=== PATIENT | male | born 1990 | race African-American/Black ===

== ENCOUNTER 2018-01-06 14:04 | Observation (INO) | payer OTHER, SELFPAY ==
[2018-01-06 14:38] LABS: Hemoglobin 16.2 g/dL (14.0-18.0); Mean Corpuscular HGB CONC 32.6 g/dL (32.0-36.0); Mean Corpuscular Hemoglobin 32.2 pg (27.0-31.0); Platelet Count 210 thou/uL (130-400); RBC Distribution Width 11.8 % (11.5-14.5); Red Blood Cell (RBC) Count 5.03 mill/uL (4.70-6.10)
[2018-01-06 14:58] LABS: Eosinophils 1 % (0-10); Large Platelets SLIGHT; Lymphocytes 39 % (21-51); MDiff Complete? YES; Monocytes 3 % (0-10); Neutrophil 37 % (42-75); PLT Morphology Comment Appears Adequate; RBC Morphology Normal; Reactive Lymphocytes 19 % (0-10)
[2018-01-06 15:00] LABS: ALT (SGPT) 71 U/L (8-55); AST (SGOT) 22 U/L (5-34); Albumin 4.3 g/dL (3.5-5.0); Alkaline Phosphatase 64 U/L (40-150); Anion Gap 12 mmol/L (10-20); BUN (Urea Nitrogen) 11 mg/dL (8.9-20.6); Bilirubin, Total 0.3 mg/dL (0.2-1.2); CK (CPK) 251 U/L (30-200); Calc. Creatinine Clearance 0 mL/min (70-130); Calcium 9.9 mg/dL (7.8-10.44); Carbon Dioxide 24 mmol/L (22-29); Chloride 105 mmol/L (98-107); Estimated GFR-MDRD Greater than 90; Glucose 114 mg/dL (70-105); Potassium 4.2 mmol/L (3.5-5.1); Protein, Total 8.3 g/dL (6.0-8.3); Sodium 137 mmol/L (136-145)
[2018-01-06 15:04] LABS: CKMB 1.1 ng/mL (0-6.6); Troponin I Less than 0.010 ng/mL (< 0.028)
--- NOTE | 2018-01-06 15:08 | RAD ---
PORTABLE CHEST ONE VIEW: 01/06/2018 2:51 p.m. HISTORY: Seizure. Chest pain. COMPARISON: 09/10/2012 FINDINGS: The heart size is normal. No confluent areas of consolidation, pneumothorax, or pleural effusions ar e seen. IMPRESSION: No radiographic evidence of acute cardiopulmonary process. POS: OFF
[2018-01-06 16:22] LABS: Acetaminophen Less than 6.0 mcg/mL (10.0-30.0); Alcohol Less than 10 mg/dL (Less than 10); Salicylate Less than 8.0 mg/dL (15.0-30.0)
[2018-01-06 16:32] LABS: Amphetamine Not Detected (NotDetected); Barbiturates Screen Not Detected (NotDetected); Benzodiazepine Screen Not Detected (NotDetected); Cocaine Metabolite Screen Not Detected (NotDetected); Medtox Control Line Valid? VALID (VALID); Medtox Reader # READER 4; Methadone Not Detected (NotDetected); Methamphetamine Not Detected (NotDetected); Opiate Screen Not Detected (NotDetected); Oxycodone Screen Not Detected (NotDetected); Phencyclidine (PCP) Not Detected (NotDetected); THC/Cannabinoid Screen Not Detected (NotDetected); Tricyclic Screen Not Detected (NotDetected)
[2018-01-06] MEDS ORDERED: Ondansetron HCl/PF 4 MG/2 ML Vial IVP PRN ×2 (17:40→19:56)
[2018-01-06] MEDS ORDERED: Ondansetron ODT 4 MG TAB SL PRN (17:40)
[2018-01-06] MEDS ORDERED: Sodium Chloride 0.9% 1,000 ML IV SCH (17:40)
[2018-01-06 17:51] VITALS: BMI 32.6
[2018-01-06 18:54] LABS: Troponin I 0.015 ng/mL (< 0.028)
[2018-01-06] MEDS ORDERED: Acetaminophen 500 MG TAB PO PRN (19:56)
[2018-01-06] MEDS ORDERED: hydrALAZINE 20 MG/ML VIAL SLOW IVP PRN (19:56)
[2018-01-06] MEDS ORDERED: Ondansetron ODT 4 MG TAB PO PRN (19:56)
[2018-01-06] MEDS ORDERED: cloNIDine 0.1 MG TAB PO PRN (19:56)
[2018-01-06] MEDS ORDERED: Nitroglycerin 0.4 MG TAB (25 Tab Bottle) PO PRN (19:56)
[2018-01-06] MEDS: Carvedilol 3.125 MG TAB PO SCH (20:20)
[2018-01-06] MEDS: Famotidine 20 MG TAB PO SCH (20:20)
[2018-01-06 21:35] LABS: Troponin I 0.017 ng/mL (< 0.028)
--- NOTE | 2018-01-07 01:52 | HP ---
DATE OF ADMISSION: 01/06/2018 PRIMARY CARE PHYSICIAN: Roman jackson. CHIEF COMPLAINT: Chest pain and heartburn. HISTORY OF PRESENT ILLNESS: This is a 27-year-old -Y[place] male who presents to [facility] emergency department and transferred from [facility] after apparently e xperiencing an episode of heartburn and reflux symptoms with associated chest pain after eating his l unch. The patient states he had a hamburger for lunch and went to lay down in the halfway when he sudde nly experienced increased heartburn and reflux symptoms. The patient states he went to the restroom and had a loose bowel movement, but no emesis. The patient denied any fever, chills, aspiration coug h, congestion, or exposure history. The patient denies any known personal history of coronary artery disease or strong family history. The patient states he had been on a blood pressure medicine in e remote past, but no current treatment. The patient states he has intermittent reflux symptoms, but does not take any specific home remedies for the condition. The patient admits to history of seizur e disorder, previously treated with Dilantin, but states he is currently off the medication as he is not established with any primary care clinic. In the emergency room, the patient underwent general e valuation including chest imaging showing no acute infiltrates. EKG showed questionable T-wave inver sions in the inferolateral leads as well as voltage criteria consistent with left ventricular hypertr ophy. The patient received sublingual nitroglycerin and aspirin and was referred to the Hospitalist Service for evaluation. PAST MEDICAL HISTORY: 1. Seizure disorder, previously treated with Dilantin, none currently. 2. History of pancreatitis. 3. History of alcohol use. 4. Incarceration. PAST SURGICAL HISTORY: Reviewed and negative. CURRENT MEDICATIONS: None. ALLERGIES: PENICILLIN. FAMILY HISTORY: Mother with history of asthma and hypertension. SOCIAL HISTORY: Patient resides in [place], [place]. Currently, unemployed. Social alcohol use. No tobacco or illicit drug use. REVIEW OF SYSTEMS: The following complete review of systems was negative, unless otherwise mentioned in the HPI or below: Constitutional: Weight loss or gain, ability to conduct usual activities. Sk in: Rash, itching. Eyes: Double vision, pain. ENT/Mouth: Nose bleeding, neck stiffness, pain, te nderness. Cardiovascular: Palpitations, dyspnea on exertion, orthopnea. Respiratory: Shortness of breath, wheezing, cough, hemoptysis, fever or night sweats. Gastrointestinal: Poor appetite, abdom inal pain, heartburn, nausea, vomiting, constipation, or diarrhea. Genitourinary: Urgency, frequenc y, dysuria, nocturia. Musculoskeletal: Pain, swelling. Neurologic/Psychiatric: Anxiety, depressio n. Allergy/Immunologic: Skin rash, bleeding tendency. PHYSICAL EXAMINATION: VITAL SIGNS: On admission, blood pressure 154/86, pulse 64, respiratory rate 16, temperature 98.2 de grees Fahrenheit, O2 saturation 98% on room air. GENERAL APPEARANCE: This is a 27-year-old -Y[place]i male, alert and oriented x3, pleasant, co nversant, in no acute distress. HEENT: Pupils are equal, round, and reactive to light and accommodation. Extraocular muscles are in tact. No scleral icterus, no conjunctival injection. Nares patent. OP is clear. Teeth in fair rep air. NECK: Supple, no cervical adenopathy, no thyromegaly, no carotid bruits, no JVD appreciated. Cervic al spine with full active and passive range of motion. CHEST: Lungs are clear to auscultation bilaterally. CARDIOVASCULAR: S1, S2, without noted murmur. ABDOMEN: Flat, soft, nontender, nondistended. Bowel sounds are positive in all four quadrants. The re is no hepatosplenomegaly, no abdominal bruits, no rebound or guarding appreciated. EXTREMITIES: Warm and dry with fair turgor. No clubbing, cyanosis or asymmetric edema appreciated. Pulses palpable distally at the dorsalis pedis, posterior tibial, and popliteal arteries bilaterally . Capillary refill less than 2 seconds. NEUROLOGIC: Cranial nerves II-XII are grossly intact. No focal or lateralizing signs appreciated. PERTINENT LABORATORY AND X-RAY FINDINGS: Basic metabolic profile within normal limits. ALT 71. Tot al CK of 251. Troponin I negative x2. BNP 10.4, lipase 26. CBC showed an MCV of 99. Urine drug sc reen dated 01/06/2018 negative. Plasma alcohol level less than 10. Portable chest x-ray dated 01/06/2018 showed no acute cardiopulmonary process. EKG dated 01/06/2018 by my interpretation shows sinus mechanism with heart rates in the 80s. Attenuated R waves noted in the precordial leads. T-wave inversion in leads V4 through V6 and leads II and F. Normal axis. ASSESSMENT AND PLAN: 1. Chest pain. The patient will be placed in observation status on the telemetry unit. History is inconsistent with cardiac etiology chest pain. We will complete serial troponin I for third set. Ch maria victoria 2D transthoracic echocardiogram in the a.m. looking for wall motion abnormalities and valvular fu nction and ejection fraction. Check fasting lipid profile in the a.m. Suspect patient's presentatio n secondary to #2. 2. Gastroesophageal reflux. We will start Pepcid 20 mg p.o. b.i.d. 3. EKG changes with T-wave inversion inferolaterally. Suspect chronic condition. Check 2D transtho racic echocardiogram to correlate with wall motion abnormality. Suspect patient with untreated hyper tension. 4. Elevated blood pressure. We will initiate Coreg 3.125 mg p.o. b.i.d. Continue to titrate antihy pertensive regimen and monitor clinical response. 5. Seizure disorder. No current treatment with Dilantin. Likely, will likely need outpatient presc ription and establish a followup for consistent dosing and monitoring. 6. Prophylaxis. Sequential compression devices while in bed. Pepcid 20 mg p.o. b.i.d. 7. CODE STATUS is FULL. Surrogate medical decision maker is the patient's mother.
[2018-01-07 05:11] LABS: Anion Gap 11 mmol/L (10-20); BUN (Urea Nitrogen) 10 mg/dL (8.9-20.6); Calc. Creatinine Clearance 124 mL/min (70-130); Calcium 9.7 mg/dL (7.8-10.44); Carbon Dioxide 29 mmol/L (22-29); Chloride 103 mmol/L (98-107); Cholesterol 165 mg/dl (< 200 Desired); Estimated GFR-MDRD 86; Glucose 84 mg/dL (70-105); HDL Cholesterol 41 mg/dL (>60 Neg Risk); LDL Cholesterol, Calculated 105 mg/dL; Potassium 3.8 mmol/L (3.5-5.1); Sodium 139 mmol/L (136-145); Triglycerides 97 mg/dL (Less than 150)
[2018-01-07 05:25] LABS: Eosinophils 1 % (0-10); Lymphocytes 62 % (21-51); MDiff Complete? YES; Mean Corpuscular HGB CONC 32.2 g/dL (32.0-36.0); Mean Corpuscular Hemoglobin 32.1 pg (27.0-31.0); Mean Corpuscular Volume 99.7 fl (80.0-94.0); Mean Platelet Volume 8.8 fL (7.4-10.4); Monocytes 2 % (0-10); Neutrophil 35 % (42-75); PLT Morphology Comment Appears Adequate; Platelet Count 205 thou/uL (130-400); Red Blood Cell (RBC) Count 4.99 mill/uL (4.70-6.10); White Blood Cell (WBC) Count 8.2 thou/uL (4.8-10.8)
[2018-01-07 08:54] VITALS: BP 142/76; TEMP 97.7
[2018-01-07] MEDS: Famotidine 20 MG TAB PO SCH (09:50)
[2018-01-07] MEDS: Carvedilol 3.125 MG TAB PO SCH (09:50)
--- NOTE | 2018-01-07 14:55 | PDOC.PN ---
- Subjective Encounter Start Date: 01/07/18 Encounter Start Time: 09:10 -: old records requested/rev Pt seen and examined, chart reviewed in its entirety, this is my first visit with this patient No F/C, no N/V/D/C, no CP, no SOB 10 point ROS performed and neg for all systems except as per HPI - Objective Resuscitation Status: Resuscitation Status FULL:Full Resuscitation Vital Signs & Weight: Vital Signs (12 hours) Temp Pulse Resp BP Pulse Ox 01/07/18 08:26 97.7 F 56 L 16 142/76 H 99 01/07/18 07:50 97.7 F 56 L 16 01/07/18 04:23 97.6 F 50 L 16 143/85 H 99 Weight Weight 214 lb 14.4 oz I&O: 01/06/18 01/07/18 01/08/18 06:59 06:59 06:59 Intake Total 450 Balance 450 Result Diagrams: 01/07/18 04:24 01/07/18 04:24 Dx/Plan - Plan * .
--- NOTE | 2018-01-11 15:33 | EKG ---
Test Reason : CP Blood Pressure : / mmHG Vent. Rate : 080 BPM Atrial Rate : 080 BPM P-R Int : 166 ms QRS Dur : 078 ms QT Int : 328 ms P-R-T Axes : 025 017 252 degrees QTc Int : 378 ms Sinus rhythm with marked sinus arrhythmia Minimal voltage criteria for LVH, may be normal variant Abnormal ECG Confirmed by ARASH FONTAINE ([id number]), loan expeditor INDU VALERA ([id number]) on 01/11/2018 3:33:09 PM Referred By: GILMER Confirmed By:ARASH FONTAINE
== END 2018-01-07 12:26 | disposition home or self-care (01) ==
LOC: ERS 14:04 → 2SW 15:20
PROVIDERS: ADMIT Family Medicine; ATTEND Family Medicine
DX: R07.2 Precordial pain (principal); K21.9 Gastro-esophageal reflux disease without esophagitis; G40.909 Epilepsy, unspecified, not intractable, without status epilepticus; R12 Heartburn; R03.0 Elevated blood-pressure reading, without diagnosis of hypertension; Z88.0 Allergy status to penicillin; Z91.041 Radiographic dye allergy status
CPT/HCPCS: 36415; 71045; 80048; 80053; 80061; 80185; 80306; 80307; 82553; 83690; 83880; 84484; 85007; 85025; 85027; 93005; 93306; G0378

== ENCOUNTER 2018-02-20 20:42 | Emergency (ER) | payer OTHER, SELFPAY ==
[2018-02-20] MEDS ORDERED: Lorazepam 2 MG/ML VIAL ONE (21:03)
[2018-02-20 21:14] LABS: #Basophils 0.1 thou/uL (0.0-0.2); #Eosinphils 0.1 thou/uL (0.0-0.7); #Lymphocytes 3.9 thou/uL (1.20-3.40); #Monocytes 0.5 thou/uL (0.11-0.59); #Neutrophils 3.3 thou/uL (1.40-6.50); %Basophils 1.6 % (0.0-1.0); %Eosinophils 0.9 % (0.0-10.0); %Lymphocytes 49.9 % (21.0-51.0); %Monocytes 6.3 % (0.0-10.0); %Neutrophils 41.4 % (42.0-75.0); Hemoglobin 15.9 g/dL (14.0-18.0); Mean Corpuscular HGB CONC 34.6 g/dL (32.0-36.0); Mean Corpuscular Hemoglobin 33.4 pg (27.0-31.0); Mean Corpuscular Volume 96.7 fl (80.0-94.0); Mean Platelet Volume 8.1 fL (7.4-10.4); Platelet Count 218 thou/uL (130-400); RBC Distribution Width 12.1 % (11.5-14.5); Red Blood Cell (RBC) Count 4.77 mill/uL (4.70-6.10); White Blood Cell (WBC) Count 7.9 thou/uL (4.8-10.8)
--- NOTE | 2018-02-20 21:22 | CT ---
CT BRAIN NONCONTRAST: 02/20/18 HISTORY: 27-year-old male status post acute head trauma from fall due to seizure. FINDINGS: There is no midline shift or any other mass effect. There is no evidence of acute intracranial hemor rhage, large cortical infarct, obstructive hydrocephalus, or extraaxial fluid collection. The calvar ium is intact. IMPRESSION: No acute intracranial findings. jn [] POS: JIN
--- NOTE | 2018-02-20 21:30 | CT ---
CT CERVICAL SPINE NONCONTRAST: 02/20/18 HISTORY: 27-year-old male status post acute cervical trauma from fall. FINDINGS: There are no jumped or perched facets. There is no evidence of acute fracture. The vertebral body h eights are maintained. There is no prevertebral soft tissue swelling. IMPRESSION: No evidence of acute fracture or acute traumatic subluxation. jn [] POS: JIN
[2018-02-20 21:32] LABS: Anion Gap 12 mmol/L (10-20); BUN (Urea Nitrogen) 11 mg/dL (8.9-20.6); Calc. Creatinine Clearance 0 mL/min (70-130); Calcium 9.7 mg/dL (7.8-10.44); Carbon Dioxide 23 mmol/L (22-29); Chloride 105 mmol/L (98-107); Dilantin Less than 1.8 ug/mL (10.0-20.0); Estimated GFR-MDRD Greater than 90; Glucose 108 mg/dL (70-105); Potassium 3.8 mmol/L (3.5-5.1); Sodium 136 mmol/L (136-145)
--- NOTE | 2018-02-20 22:08 | CT ---
CT LUMBAR SPINE NONCONTRAST: 02/20/18 HISTORY: 27-year-old male status post acute lumbar trauma due to fall. FINDINGS: There are five lumbar type vertebrae. Minimal chronic anterior wedging of T12, L1, and L2. No acute c ompression fracture. No high grade disc space narrowing. Normal appendix. Multiple mildly enlarged me senteric lymph nodes. No hematoma identified in the perivertebral spaces. IMPRESSION: 1. No acute compression fracture of the lumbar spine. 2. Mesenteric lymphadenitis. POS: JIN
--- NOTE | 2018-02-20 22:09 | CT ---
THORACIC SPINE CT NONCONTRAST: 02/20/18 INDICATION: Injury, pain. Posttraumatic injury. FINDINGS: No compression fracture or subluxation of the thoracic spine. No retropulsion of bone into the verteb ral canal. No acute facet malalignment. IMPRESSION: No evidence of acute osseous abnormality of the thoracic spine. POS: AKASH
== END 2018-02-20 23:50 | disposition home or self-care (01) ==
LOC: ERS 20:42
DX: S39.012A Strain of muscle, fascia and tendon of lower back, initial encounter (principal); G40.909 Epilepsy, unspecified, not intractable, without status epilepticus; Z79.899 Other long term (current) drug therapy; W22.8XXA Striking against or struck by other objects, initial encounter
CPT/HCPCS: 36415; 70450; 72125; 72128; 72131; 80048; 80185; 85025; 96374; J2060

== ENCOUNTER 2018-04-08 05:40 | Emergency (ER) | payer SELFPAY | END 2018-04-08 07:23 | disposition home or self-care (01) | LOC: ERS 05:40 | DX: G40.909 Epilepsy, unspecified, not intractable, without status epilepticus (principal); Z76.0 Encounter for issue of repeat prescription; Z79.899 Other long term (current) drug therapy | CPT/HCPCS: 99283 ==

== ENCOUNTER 2018-09-11 00:39 | Emergency (ER) | payer SELFPAY ==
[2018-09-11 01:32] LABS: ALT (SGPT) 91 U/L (8-55); AST (SGOT) 42 U/L (5-34); Albumin 4.2 g/dL (3.5-5.0); Alkaline Phosphatase 69 U/L (40-150); Anion Gap 15 mmol/L (10-20); BUN (Urea Nitrogen) 11 mg/dL (8.9-20.6); Bilirubin, Total 0.6 mg/dL (0.2-1.2); Calc. Creatinine Clearance 0 mL/min (70-130); Calcium 9.2 mg/dL (7.8-10.44); Carbon Dioxide 21 mmol/L (22-29); Chloride 106 mmol/L (98-107); Estimated GFR-MDRD Greater than 90; Glucose 113 mg/dL (70-105); Lipase 206 U/L (8-78); Potassium 3.7 mmol/L (3.5-5.1); Protein, Total 8.2 g/dL (6.0-8.3); Sodium 138 mmol/L (136-145)
[2018-09-11 01:37] LABS: Eosinophils 1 % (0-10); Hemoglobin 15.5 g/dL (14.0-18.0); Lymphocytes 57 % (21-51); MDiff Complete? YES; Mean Corpuscular HGB CONC 32.8 g/dL (32.0-36.0); Mean Corpuscular Hemoglobin 31.9 pg (27.0-31.0); Mean Corpuscular Volume 97.1 fL (78.0-98.0); Mean Platelet Volume 8.9 fL (7.4-10.4); Monocytes 8 % (0-10); Neutrophil 34 % (42-75); PLT Morphology Comment Appears Adequate; Platelet Count 205 thou/uL (130-400); RBC Distribution Width 11.9 % (11.5-14.5); Red Blood Cell (RBC) Count 4.85 mill/uL (4.70-6.10); White Blood Cell (WBC) Count 6.9 thou/uL (4.8-10.8)
[2018-09-11 01:44] LABS: Bilirubin Negative (Negative); Blood, Urine Negative (Negative); Clarity CLEAR (Clear); Glucose, Urine (Dipstick) Negative (Negative); Leukocyte Negative (Negative); Nitrite Negative (Negative); Protein, Urine (Dipstick) Negative (Neg-Trace); Urobilinogen 0.2 mg/dL (0.2-1.0); pH, Urine 5.5 (5.0-9.0)
--- NOTE | 2018-09-11 08:20 | CT ---
PRELIMINARY REPORT/[facility]/EMERGENTY AFTER-HOURS PROCEDURE CT Abdomen and Pelvis Without Intravenous Contrast EXAM DATE/TIME: 09/11/2018 1:53 AM CLINICAL HISTORY: 28 years old, male; Pain; Abdominal pain; Flank; Right upper quadrant (ruq); Patient HX: M28 presents via ems with ruq abd pain onset today associated with nausea. PT reports similar episode about a yea r ago that PT states had something to do with his pancreas. Per ems PT is +etoh. TECHNIQUE: Axial computed tomography images of the abdomen and pelvis without intravenous contrast. Coronal reformatted images were created and reviewed. COMPARISON: No relevant prior studies available. FINDINGS: Lower thorax: The lung bases are clear. ABDOMEN: Liver: There is fatty infiltration of the liver. Gallbladder and bile ducts: No visible gallstones or other definite gallbladder abnormality by CT. Ul trasound could be more sensitive for detecting gallstones, if clinically needed. No biliary tree dila tion. Pancreas: Unremarkable. Spleen: Unremarkable. Adrenals: Unremarkable. Kidneys and ureters: Small left intrarenal calculus. No hydronephrosis of either kidney. No visible u reteral calculus. No perinephric fluid. Stomach and bowel: There are no CT findings to strongly suggest diverticulitis. Appendix: The appendix is visualized and appears normal. PELVIS: Bladder: Unremarkable as visualized. Reproductive: Unremarkable as visualized. ABDOMEN and PELVIS: Intraperitoneal space: No free air, ascites, or bowel distention. No abnormal mass or fluid collectio n in the pelvis. Bones/joints: No significant acute finding. Soft tissues: No significant acute finding. Vasculature: No evidence for abdominal aortic aneurysm. Lymph nodes: Several borderline to mildly prominent mesenteric lymph nodes, including in the right lo wer quadrant. This is a nonspecific appearance. Mesenteric adenitis might be considered, although the current appearance is relatively mild. Please correlate clinically. No significant retroperitoneal adenopathy. IMPRESSION: 1. Small left intrarenal calculus. 2. No hydronephrosis of either kidney. No visible ureteral calculus. 3. Unremarkable gallbladder by CT. 4. Normal appendix. 5. No free air or bowel distention. 6. Several borderline to mildly prominent mesenteric lymph nodes, see above. 7. Other findings discussed above. Thank you for allowing us to participate in the care of your patient. Dictated and Authenticated by: Jarad Anguiano MD 09/11/2018 2:41 AM Central Time ([place] & [place]) FINAL REPORT CT ABDOMEN AND PELVIS WITHOUT CONTRAST: Date: 09/11/18 FINDINGS/IMPRESSION: I agree with the preliminary report given by Keith. POS: BRIANDA
== END 2018-09-11 03:51 | disposition home or self-care (01) ==
LOC: ERS 00:39
DX: R10.11 Right upper quadrant pain (principal); Z79.899 Other long term (current) drug therapy
CPT/HCPCS: 36415; 74176; 80053; 81003; 82150; 83690; 85025; 96360

== ENCOUNTER 2019-04-02 20:21 | Emergency (ER) | payer SELFPAY ==
[2019-04-02] MEDS ORDERED: Acetaminophen 500 MG TAB ONE (21:01)
[2019-04-02 21:16] LABS: Bilirubin Negative (Negative); Blood, Urine Negative (Negative); Clarity CLOUDY (Clear); Glucose, Urine (Dipstick) Negative (Negative); Leukocyte Large (Negative); Nitrite Negative (Negative); Protein, Urine (Dipstick) Trace mg/dL (Neg-Trace); Specific Gravity, Urine 1.019 (1.002-1.036)
[2019-04-02 21:16] LABS: Hemoglobin 15.4 g/dL (14.0-18.0); Mean Corpuscular HGB CONC 32.8 g/dL (32.0-36.0); Mean Corpuscular Hemoglobin 32.2 pg (27.0-31.0); Platelet Count 208 thou/uL (130-400); RBC Distribution Width 11.7 % (11.5-14.5); White Blood Cell (WBC) Count 8.4 thou/uL (4.8-10.8)
[2019-04-02 21:27] LABS: Amphetamine Not Detected (NotDetected); Bacteria/HPF None Seen HPF (None Seen); Barbiturates Screen Not Detected (NotDetected); Benzodiazepine Screen Not Detected (NotDetected); Cocaine Metabolite Screen Not Detected (NotDetected); Hyaline Casts/LPF 0-3 HYALINE CAST LPF (0-3 Hyaline); Medtox Control Line Valid? VALID (VALID); Medtox Reader # READER 1; Methadone Not Detected (NotDetected); Methamphetamine Not Detected (NotDetected); Opiate Screen Not Detected (NotDetected); Oxycodone Screen Not Detected (NotDetected); Phencyclidine (PCP) Not Detected (NotDetected); Squamous Epithelial None Seen HPF (0-3); THC/Cannabinoid Screen Not Detected (NotDetected); Tricyclic Screen Not Detected (NotDetected)
[2019-04-02 21:28] LABS: Yeast-AUWi Flag 53.4 (0-25.0)
[2019-04-02 21:30] LABS: Lymphocytes 45 % (21-51); MDiff Complete? YES; Monocytes 6 % (0-10); Neutrophil 45 % (42-75); Reactive Lymphocytes 4 % (0-10)
[2019-04-02 21:33] LABS: ALT (SGPT) 49 U/L (8-55); AST (SGOT) 18 U/L (5-34); Albumin 4.1 g/dL (3.5-5.0); Alkaline Phosphatase 68 U/L (40-150); Anion Gap 13 mmol/L (10-20); BUN (Urea Nitrogen) 10 mg/dL (8.9-20.6); Bilirubin, Total 0.3 mg/dL (0.2-1.2); Calc. Creatinine Clearance 0 mL/min (70-130); Calcium 9.9 mg/dL (7.8-10.44); Carbon Dioxide 22 mmol/L (22-29); Chloride 107 mmol/L (98-107); Estimated GFR-MDRD Greater than 90; Glucose 121 mg/dL (70-105); Potassium 3.9 mmol/L (3.5-5.1); Protein, Total 8.1 g/dL (6.0-8.3); Sodium 138 mmol/L (136-145)
[2019-04-02 21:35] LABS: Yeast-All Forms None Seen HPF (None Seen)
--- NOTE | 2019-04-02 21:43 | CT ---
CT BRAIN NONCONTRAST: DATE: 04/02/2019 HISTORY: 28-year-old male with post ictal and posttraumatic headache after seizure and fall FINDINGS: There is no evidence of acute intra-axial or extra-axial hemorrhage. There is no midline shift or any other mass effect. There is no extra-axial fluid collection. The ventricles are normal in size and configuration. The tympanomastoid cavities, and the upper portions of the paranasal sinuses included in these images, are grossly clear. Calvarium is intact. IMPRESSION: Normal.
[2019-04-02] MEDS ORDERED: Lidocaine 1% (PF) 30 ML VIAL ONE (22:28)
[2019-04-02] MEDS ORDERED: cefTRIAXone\\ROCEPHIN 250 MG VIAL ONE (22:28)
[2019-04-02] MEDS ORDERED: Azithromycin 250 MG TAB ONE (22:31)
[2019-04-04 23:31] LABS: Chlam.trachomatis by PCR,Urine Not Detected (NotDetected)
== END 2019-04-02 23:05 ==
LOC: ERS 20:21
DX: R56.9 Unspecified convulsions (principal); R36.9 Urethral discharge, unspecified
CPT/HCPCS: 36415; 70450; 80053; 80306; 81003; 81015; 85025; 87491; 87591; 96372; J0696; J2001

== ENCOUNTER 2020-11-08 17:58 | Emergency (ER) | payer SELFPAY ==
[2020-11-08 18:57] LABS: Hemoglobin 15.8 g/dL (14.0-18.0); Mean Corpuscular HGB CONC 32.1 g/dL (32.0-36.0); Mean Corpuscular Hemoglobin 32.7 pg (27.0-31.0); Mean Platelet Volume 9.8 fL (7.4-10.4); Platelet Count 182 thou/uL (130-400); RBC Distribution Width 11.6 % (11.5-14.5); Red Blood Cell (RBC) Count 4.84 mill/uL (4.70-6.10); White Blood Cell (WBC) Count 6.8 thou/uL (4.8-10.8)
[2020-11-08 19:16] LABS: Eosinophils 3 % (0-10); Lymphocytes 60 % (21-51); MDiff Complete? YES; Monocytes 10 % (0-10); Neutrophil 20 % (42-75); Platelet Morphology Comment Appears Adequate; RBC Morphology Normal; Reactive Lymphocytes 6 % (0-10)
== END 2020-11-08 22:05 | disposition home or self-care (01) ==
LOC: ERS 17:58
DX: K29.70 Gastritis, unspecified, without bleeding (principal)
CPT/HCPCS: 36415; 85025; 99284

== ENCOUNTER 2021-01-10 14:39 | Observation (INO) | payer SELFPAY ==
[2021-01-10 16:01] LABS: Hemoglobin 16.6 g/dL (14.0-18.0); Mean Corpuscular HGB CONC 32.3 g/dL (32.0-36.0); Mean Corpuscular Hemoglobin 33.1 pg (27.0-31.0); Mean Platelet Volume 9.3 fL (7.4-10.4); Platelet Count 181 thou/uL (130-400); Red Blood Cell (RBC) Count 5.01 mill/uL (4.70-6.10); White Blood Cell (WBC) Count 7.1 thou/uL (4.8-10.8)
[2021-01-10] MEDS ORDERED: Lorazepam 2 MG/ML VIAL ONE ×2 (16:02→16:15)
[2021-01-10] MEDS ORDERED: diphenhydrAMINE 50 MG/ML VIAL ONE (16:17)
[2021-01-10] MEDS ORDERED: Haloperidol Lactate 5 MG/ML VIAL ONE (16:17)
[2021-01-10 16:20] LABS: ALT (SGPT) 136 U/L (8-55); AST (SGOT) 61 U/L (5-34); Acetaminophen Less than 6.0 mcg/mL (10.0-30.0); Albumin 4.4 g/dL (3.5-5.0); Alcohol Less than 10 mg/dL (Less than 10); Alkaline Phosphatase 61 U/L (40-110); Anion Gap 15 mmol/L (10-20); BUN (Urea Nitrogen) 12 mg/dL (8.9-20.6); Bilirubin, Total 0.8 mg/dL (0.2-1.2); CK (CPK) 1816 U/L (30-200); Calc. Creatinine Clearance 0 mL/min (70-130); Calcium 9.8 mg/dL (7.8-10.44); Carbon Dioxide 23 mmol/L (22-29); Chloride 104 mmol/L (98-107); Globulin 4.4 g/dL (2.4-3.5); Glucose 96 mg/dL (70-105); Potassium 4.1 mmol/L (3.5-5.1); Protein, Total 8.8 g/dL (6.0-8.3); Salicylate Less than 8.0 mg/dL (15.0-30.0); Sodium 138 mmol/L (136-145)
[2021-01-10 16:23] LABS: Band 3 % (5-11); Eosinophils 1 % (0-10); Lymphocytes 43 % (21-51); MDiff Complete? YES; Macrocytosis SLIGHT = 6-15 cells (100X) (0-5/hpf); Monocytes 7 % (0-10); Neutrophil 31 % (42-75); Platelet Morphology Comment Appears Adequate; Reactive Lymphocytes 15 % (0-10)
[2021-01-10 16:47] LABS: Bilirubin Negative (Negative); Blood, Urine Negative (Negative); Clarity Clear (Clear); Glucose, Urine (Dipstick) Normal (Negative); Ketone, Urine Negative (Negative); Leukocyte Negative Leu/uL (Negative); Nitrite Negative (Negative); Protein, Urine (Dipstick) 10 mg/dL (Neg-Trace); Specific Gravity, Urine 1.021 (1.002-1.036); Urobilinogen Normal mg/dL (Less than 2)
[2021-01-10 17:00] LABS: Amphetamine Detected (NotDetected); Barbiturates Screen Not Detected (NotDetected); Benzodiazepine Screen Not Detected (NotDetected); Cocaine Metabolite Screen Not Detected (NotDetected); Medtox Control Line Valid? VALID (VALID); Medtox Reader # READER 4; Methadone Not Detected (NotDetected); Methamphetamine Detected (NotDetected); Opiate Screen Not Detected (NotDetected); Oxycodone Screen Not Detected (NotDetected); Phencyclidine (PCP) Not Detected (NotDetected); THC/Cannabinoid Screen Detected (NotDetected); Tricyclic Screen Not Detected (NotDetected)
--- NOTE | 2021-01-10 18:16 | CT ---
CT BRAIN WITHOUT CONTRAST: HISTORY: Seizure COMPARISON: 04/02/2019 FINDINGS: No evidence of acute infarct, hemorrhage, midline shift or abnormal extra-axial fluid collections is seen. The ventricular size is appropriate and the basilar cisterns are patent. The bony calvarium is intact. The visualized paranasal sinuses and mastoid air cells are well aerated. IMPRESSION: No CT evidence of acute intracranial process.
[2021-01-10] MEDS ORDERED: Ondansetron ODT 4 MG TAB PO PRN (22:42)
[2021-01-10] MEDS ORDERED: Ondansetron PF 4 MG/2 ML Vial IVP PRN (22:42)
[2021-01-10] MEDS ORDERED: Acetaminophen 650 MG Suppository PR PRN (22:42)
[2021-01-10 23:37] VITALS: BMI 32.2
[2021-01-11] MEDS ORDERED: Acetaminophen/Codeine 30-300mg Tablet PO PRN (00:52)
[2021-01-11] MEDS ORDERED: Acetaminophen 325 MG TAB PO PRN (00:52)
[2021-01-11] MEDS: Sodium Chloride 0.9% 1,000 ML IV SCH ×2 (00:55→09:16)
[2021-01-11 03:10] LABS: SARS-CoV-2 PCR by NAA Not Detected (NotDetected)
--- NOTE | 2021-01-11 03:46 | PDOC.HHP ---
Hospitalist [facility] Altered mental state History of Present Illness: This is a 30-year-old male patient with a history of generalized seizures, hepatitis B infection and hypertension who presents with intentional unprescribed drug ingestion. Patient said he felt depressed after his niece had couple of days ago when he ended up taking some unknown pills. He notes that a friend gave him the pills which we about 4-5 and he was told he could help calm his anxiety. He however denies suicidal ideation. At presentation he denied any chest pain shortness of breath or nausea vomiting. Also denied abdominal pain. He denies any history of suicide attempt. At presentation his blood pressure was 169/103, pulse 79, temperature 98.2, respirate 17 and saturating 96 on room air. His labs CBC was essentially within normal limits chemistry showed increased ALT at 163 and AST of 61. Creatinine kinase was thousand 816. Troponin was 0.01. Urinalysis was unremarkable, toxicology showed negative salicylates and acetaminophen. However had amphetamines methamphetamines and cannabinoids present. Serology was negative for Covid. He received 2 L normal saline, 50 mg Benadryl and haloperidol 5 mg. Also received lorazepam 2 mg. A sitter was placed in his room Hospitalist team was consulted for admission Allergies/Adverse Reactions: Allergy/AdvReac Type Severity Reaction Status Date / Time iodine Allergy Mild Rash Verified 01/10/21 23:52 Penicillins Allergy Unknown Verified 01/10/21 23:52 Home Medications: Medication Instructions Recorded Confirmed Type No Known 01/11/21 01/11/21 History Past History: Past medical history: Generalized weakness Past surgical history: None Family history: None Social history: Denies alcohol, denies drug use, has no smoking history. Lives with his brother Hospitalist [facility] Constitutional: denies: fever, chills, sweats, weakness Respiratory: denies: cough, shortness of breath, hemoptysis, SOB with excertion Gastrointestinal: denies: nausea, vomiting, abdominal pain, diarrhea Musculoskeletal: denies: neck pain, shoulder pain, arm pain, back pain Neurological: denies: weakness, numbness, incoordination, change in speech All other systems reviewed; all pertinent +/- noted in HPI/Subj Hospitalist Exam Vitals: Vital Signs (12 hours) Temp Pulse Resp BP Pulse Ox 01/11/21 03:40 97.3 F L 70 20 136/67 95 03/03/21 00:00 98.3 F 77 20 164/85 H 100 01/10/21 21:23 98.3 F 77 20 164/85 H 100 Weight Weight 211 lb 12.8 oz General Appearance: awake alert General - other findings: In no acute distress Eye: PERRL, anicteric sclera ENT: normocephalic atraumatic Heart: RRR, no murmur, no gallops, normal peripheral pulses Respiratory: CTAB, no wheezes, no rales, no ronchi Gastrointestinal: soft, non-tender, non-distended, normal bowel sounds Extremities: no cyanosis, no clubbing, no edema Skin: normal turgor Neurological: cranial nerve grossly intact, no focal deficits, no new deficit Psychiatric: normal affect, normal behavior, A&O x 3 Hospitalist Results Result Diagrams: 01/11/21 04:02 01/11/21 04:02 Lab results: Laboratory Last Values WBC 7.1 thou/uL (4.8-10.8) 01/10/21 15:32 RBC 5.01 mill/uL (4.70-6.10) 01/10/21 15:32 Hgb 16.6 g/dL (14.0-18.0) 01/10/21 15:32 Hct 51.3 % (42.0-52.0) 01/10/21 15:32 MCV 102.0 fL (78.0-98.0) H 01/10/21 15:32 MCH 33.1 pg (27.0-31.0) H 01/10/21 15:32 MCHC 32.3 g/dL (32.0-36.0) 01/10/21 15:32 RDW 12.0 % (11.5-14.5) 01/10/21 15:32 Plt Count 181 thou/uL (130-400) 01/10/21 15:32 MPV 9.3 fL (7.4-10.4) 01/10/21 15:32 Neutrophils % (Manual) 31 % (42-75) L 01/10/21 15:32 Band Neuts % (Manual) 3 % (5-11) L 01/10/21 15:32 Lymphocytes % (Manual) 43 % (21-51) 01/10/21 15:32 Reactive Lymphs % 15 % (0-10) H 01/10/21 15:32 Monocytes % (Manual) 7 % (0-10) 01/10/21 15:32 Eosinophils % (Manual) 1 % (0-10) 01/10/21 15:32 Lymphocytes # Not Reportable 01/10/21 15:32 Plt Morphology Comment Appears Adequate 01/10/21 15:32 Macrocytosis SLIGHT = 6-15 cells (100X) (0-5/hpf) 01/10/21 15:32 Sodium 138 mmol/L (136-145) 01/10/21 15:32 Potassium 4.1 mmol/L (3.5-5.1) 01/10/21 15:32 Chloride 104 mmol/L (98-107) 01/10/21 15:32 Carbon Dioxide 23 mmol/L (22-29) 01/10/21 15:32 Anion Gap 15 mmol/L (10-20) 01/10/21 15:32 BUN 12 mg/dL (8.9-20.6) 01/10/21 15:32 Creatinine 1.17 mg/dL (0.7-1.3) 01/10/21 15:32 Estimated GFR (MDRD) 88 01/10/21 15:32 Glucose 96 mg/dL (70-105) 01/10/21 15:32 Calcium 9.8 mg/dL (7.8-10.44) 01/10/21 15:32 Total Bilirubin 0.8 mg/dL (0.2-1.2) 01/10/21 15:32 AST 61 U/L (5-34) H 01/10/21 15:32 ALT 136 U/L (8-55) H 01/10/21 15:32 Alkaline Phosphatase 61 U/L (40-110) 01/10/21 15:32 Creatine Kinase 1816 U/L (30-200) H 01/10/21 15:32 Troponin I 0.011 ng/mL (< 0.028) 01/10/21 15:32 Serum Total Protein 8.8 g/dL (6.0-8.3) H 01/10/21 15:32 Albumin 4.4 g/dL (3.5-5.0) 01/10/21 15:32 Globulin 4.4 g/dL (2.4-3.5) H 01/10/21 15:32 Albumin/Globulin Ratio 1.0 g/dL (1.2-2.2) L 01/10/21 15:32 TSH 3rd Generation 1.8830 uIU/mL (0.35-4.94) 01/10/21 15:32 Urine Color Light-Yellow (Yellow) 01/10/21 16:32 Urine Clarity Clear (Clear) 01/10/21 16:32 Urine pH 6.0 (5.0-9.0) 01/10/21 16:32 Ur Specific [place] 1.021 (1.002-1.036) 01/10/21 16:32 Urine Protein 10 mg/dL (Neg-Trace) 01/10/21 16:32 Urine Glucose (UA) Normal mg/dL (Negative) 01/10/21 16:32 Urine Ketones Negative mg/dL (Negative) 01/10/21 16:32 Urine Blood Negative (Negative) 01/10/21 16:32 Urine Nitrite Negative (Negative) 01/10/21 16:32 Urine Bilirubin Negative (Negative) 01/10/21 16:32 Urine Urobilinogen Normal mg/dL (Less than 2) 01/10/21 16:32 Ur Leukocyte Esterase Negative Sahil/uL (Negative) 01/10/21 16:32 Salicylates Less than 8.0 mg/dL (15.0-30.0) L 01/10/21 15:32 Urine Opiates Screen Not Detected (NotDetected) 01/10/21 16:32 Ur Oxycodone Screen Not Detected (NotDetected) 01/10/21 16:32 Urine Methadone Screen Not Detected (NotDetected) 01/10/21 16:32 Ur Propoxyphene Screen Not Detected (NotDetected) 01/10/21 16:32 Acetaminophen Less than 6.0 mcg/mL (10.0-30.0) L 01/10/21 15:32 Ur Barbiturates Screen Not Detected (NotDetected) 01/10/21 16:32 Ur Tricyclics Screen Not Detected (NotDetected) 01/10/21 16:32 Ur Phencyclidine Scrn Not Detected (NotDetected) 01/10/21 16:32 Ur Amphetamines Screen Detected (NotDetected) H 01/10/21 16:32 U Methamphetamines Scrn Detected (NotDetected) H 01/10/21 16:32 U Benzodiazepines Scrn Not Detected (NotDetected) 01/10/21 16:32 U Cocaine Metab Screen Not Detected (NotDetected) 01/10/21 16:32 U Cannabinoids Screen Detected (NotDetected) H 01/10/21 16:32 Drug Screen Comment () 01/10/21 16:32 Plasma Alcohol Less than 10 mg/dL (Less than 10) 01/10/21 15:32 SARS CoV-2 Rapid Source Nasopharyngeal Swab 01/10/21 17:54 SARS-CoV-2 RNA (TEMI) Not Detected (NotDetected) 01/10/21 17:54 Hospitalist H&P A/P Plan: This is a 30-year-old male patient with a history of hepatitis B, seizures and hypertension who presents to the ED after taking about 4 5 unknown pills. This he did upon feeling depressed after the of his niece. Suicide ideation Unclear which medications however patient is currently stable. Take about 4 to 5 pills. Salicylate and Tylenol levels within normal limits. He has slightly elevated transaminases however patient notes he has a history of hepatitis B which has been untreated. I also doubt at 45 pills of Tylenol will be of significant toxicity. Patient currently back to baseline We will monitor till a.m. Sitter in room [facility] consult in a.m. History of hypertension Blood pressure stable As needed blood pressure medications. Transaminitis Elevated liver enzymes Possibly due to hepatitis With a right upper quadrant with guarding/hepatitis panel -polysubstance abuse Amphethamine and canabis
[2021-01-11 04:45] LABS: ALT (SGPT) 112 U/L (8-55); AST (SGOT) 50 U/L (5-34); Acetaminophen Less than 6.0 mcg/mL (10.0-30.0); Albumin 3.6 g/dL (3.5-5.0); Alkaline Phosphatase 53 U/L (40-110); Anion Gap 14 mmol/L (10-20); BUN (Urea Nitrogen) 11 mg/dL (8.9-20.6); Bilirubin, Total 0.5 mg/dL (0.2-1.2); Calc. Creatinine Clearance 143 mL/min (70-130); Calcium 8.6 mg/dL (7.8-10.44); Carbon Dioxide 19 mmol/L (22-29); Chloride 107 mmol/L (98-107); Globulin 3.9 g/dL (2.4-3.5); Glucose 97 mg/dL (70-105); Potassium 3.8 mmol/L (3.5-5.1); Protein, Total 7.5 g/dL (6.0-8.3); Sodium 136 mmol/L (136-145)
[2021-01-11 04:54] LABS: Hemoglobin 15.1 g/dL (14.0-18.0); Mean Corpuscular HGB CONC 31.1 g/dL (32.0-36.0); Mean Corpuscular Hemoglobin 32.5 pg (27.0-31.0); Mean Platelet Volume 9.3 fL (7.4-10.4); Platelet Count 172 thou/uL (130-400); RBC Distribution Width 11.9 % (11.5-14.5); Red Blood Cell (RBC) Count 4.66 mill/uL (4.70-6.10); White Blood Cell (WBC) Count 7.8 thou/uL (4.8-10.8)
[2021-01-11 06:02] LABS: Band 5 % (5-11); Lymphocytes 63 % (21-51); MDiff Complete? YES; Monocytes 5 % (0-10); Neutrophil 27 % (42-75)
--- NOTE | 2021-01-11 08:36 | ULT ---
GALLBLADDER ULTRASOUND: HISTORY: Right upper quadrant pain. FINDINGS: Real-time imaging of the right upper quadrant shows a normal-appearing gallbladder. The common duct is 4 mm. The liver is of increased echogenicity. It measures 15.6 cm in length. The right kidney i s normal in size and not obstructed. Pancreas region is partially obscured. IMPRESSION: Diffuse fatty change of the liver. POS: DAVID
[2021-01-11] MEDS ORDERED: FLU VACC QS2020-21(6MOS UP)/PF 60 MCG/0.5 ML SYRINGE IM ONE (09:00)
[2021-01-11] MEDS ORDERED: Enoxaparin Sodium 40 MG/0.4 ML SYRINGE SC SCH (09:00)
--- NOTE | 2021-01-11 17:53 | PDOC.HOSPP ---
- Subjective Encounter Date: 01/11/21 Encounter Time: 17:52 Subjective: Mr. Waller was seen today in follow-up of intentional overdose. His affect is a bit flat. He denies any suicidal ideation to me. No new complaints. His girlfriend is at bedside. - Objective Vital Signs & Weight: Vital Signs (12 hours) Temp Pulse Resp BP Pulse Ox 01/11/21 15:40 97.7 F 64 16 138/83 98 01/11/21 11:20 98.4 F 72 14 138/76 97 01/11/21 08:00 98.5 F 69 16 153/71 H 97 Weight Weight 211 lb 12.8 oz Result Diagrams: 01/11/21 04:02 01/11/21 04:02 Hospitalist ROS - Medication Medications: Active Medications Generic Name Dose Route Start Last Admin Trade Name Freq PRN Reason Stop Dose Admin Enoxaparin Sodium 40 mg 01/11/21 09:00 01/11/21 08:46 Enoxaparin Sodium 40 Mg/0.4 Ml Syringe SC 40 mg 0900 JONEL Administration Sodium Chloride 1,000 mls @ 120 mls/hr 01/11/21 00:45 01/11/21 09:16 Normal Saline 0.9% IV 1,000 mls .[id number] JONEL Administration Polyethylene Glycol 17 gm 01/11/21 23:45 01/11/21 00:10 Polyethylene Glycol 3350 17 Gm Packet PO 01/12/21 01:00 17 gm NOW JONEL Administration Hospitalist Exam Vitals: Vital Signs (12 hours) Temp Pulse Resp BP Pulse Ox 01/11/21 15:40 97.7 F 64 16 138/83 98 01/11/21 11:20 98.4 F 72 14 138/76 97 01/11/21 08:00 98.5 F 69 16 153/71 H 97 Weight Weight 211 lb 12.8 oz General Appearance: NAD, awake alert Eye: PERRL, anicteric sclera Heart: RRR, no murmur, no gallops, no rubs, normal peripheral pulses Respiratory: CTAB, no wheezes, no rales, no ronchi, normal chest expansion, no tachypnea, normal percussion Gastrointestinal: soft, non-tender, non-distended, normal bowel sounds, no palpable masses, no hepatomegaly Extremities: no cyanosis, no edema Hosp A/P (1) Suicidal ideation Code(s): R45.851 - SUICIDAL IDEATIONS Status: Acute (2) Polysubstance abuse Code(s): F19.10 - OTHER PSYCHOACTIVE SUBSTANCE ABUSE, UNCOMPLICATED Status: Acute (3) Depression Code(s): F32.9 - MAJOR DEPRESSIVE DISORDER, SINGLE EPISODE, UNSPECIFIED Status: Acute (4) Rhabdomyolysis Code(s): M62.82 - RHABDOMYOLYSIS Status: Acute - Plan * Suicidal ideation- discussed with the patient- he denies any prior attempt. Will await [facility] evaluation * Rhabdomyolysis- continue IV fluids, and will repeat the CK result * Abdominal Ultrasound notedlysubstance abuse- will offer patient out patient resources
[2021-01-11 20:42] VITALS: BP 134/75; TEMP 98.3
[2021-01-11] MEDS ORDERED: Polyethylene Glycol 3350 17 GM Packet PO SCH (23:45)
--- NOTE | 2021-01-12 18:54 | PDOC.DS.DS ---
Provider Date of Admission: 01/10/21 18:39 Date of Discharge: 01/12/21 Admitting Provider: Jagdish Shipman MD Primary Care Physician: NO PCP PROVIDER Course Hospital Course: Sridhar is a 30 year old gentleman with no significant past medical history who was brought o the hospital by family due o concerns for medication overdose. He was feeling sad about the of his young niece, and admits to taking a hand full of pills to " chill out". He says that he never got drowsy or loss consciousness, but his friends were concerned and brought him to the hospital. He had slightly elevated liver function tests, as well as a CK level, and for this reason he was monitored in the hospital overnight. He was placed on IV fluids, and his CK level began to improve. He maintained normal renal function through out. He denied suicidal ideation, and denied any plan to try to harm himself. He denied homicidal ideation as well. Prior to his discharge he was evaluated by [facility] and it was felt that he was safe to go home in the care of his family, and girl friend. Resources were given for follow-up and crisis intervention. Lab Results: 01/11/21 04:02 01/11/21 04:02 Abnormal Lab Results - Last 48 hrs 01/11/21 04:02: Carbon Dioxide 19 L, AST 50 H, ALT 112 H, Globulin 3.9 H, Albumin/Globulin Ratio 0.9 L, Acetaminophen Less than 6.0 L 01/11/21 04:02: RBC 4.66 L, MCV 104.0 H, MCH 32.5 H, MCHC 31.1 L, Neutrophils % (Manual) 27 L, Lymphocytes % (Manual) 63 H 01/11/21 16:17: Creatine Kinase 926 H Vitals: Weight Weight 211 lb 12.8 oz Physical Exam: The patient was seen and examined on the day of discharge. Problem (1) Suicidal ideation Code(s): R45.851 - SUICIDAL IDEATIONS Status: Acute (2) Polysubstance abuse Code(s): F19.10 - OTHER PSYCHOACTIVE SUBSTANCE ABUSE, UNCOMPLICATED Status: Acute (3) Depression Code(s): F32.9 - MAJOR DEPRESSIVE DISORDER, SINGLE EPISODE, UNSPECIFIED Status: Acute (4) Rhabdomyolysis Code(s): M62.82 - RHABDOMYOLYSIS Status: Acute Plan Home Medications: Medication Instructions Recorded Confirmed Type No Known 01/11/21 01/11/21 History Allergies: iodine Allergy (Mild, Verified 01/10/21 23:52) Rash per pt Penicillins Allergy (Unknown, Verified 01/10/21 23:52) pt doesn't know reaction but stated allergic Referrals: [facility] [Outside] (Please call the clinic if your symptoms get worse or you need help.) PROVIDER,NO PCP [Primary Care Provider] - 7 Days (Please choose a primary care p hysician and schedule a follow up appointment) Disposition: HOME Quality CORE MEASURES:: N/A
--- NOTE | 2021-01-14 16:32 | EKG ---
Test Reason : Blood Pressure : / mmHG Vent. Rate : 077 BPM Atrial Rate : 077 BPM P-R Int : 160 ms QRS Dur : 080 ms QT Int : 352 ms P-R-T Axes : 035 013 246 degrees QTc Int : 398 ms Normal sinus rhythm with sinus arrhythmia Minimal voltage criteria for LVH, may be normal variant T wave abnormality, consider inferolateral ischemia Abnormal ECG Confirmed by YESSENIA DIA M.D. ([id number]), editor [place] ([id number]) on 01/14/2021 4:32:27 PM Referred By: Confirmed By:YESSENIA DIA M.D.
== END 2021-01-11 21:05 | disposition home or self-care (01) ==
LOC: ERS 14:39 → ERHOLD 18:39 → 2NO 23:13
PROVIDERS: ADMIT Student in an Organized Health Care Education/Training Program; ATTEND Internal Medicine
DX: T65.92XA Toxic effect of unspecified substance, intentional self-harm, initial encounter (principal); R41.82 Altered mental status, unspecified; I10 Essential (primary) hypertension; B19.10 Unspecified viral hepatitis B without hepatic coma; F15.10 Other stimulant abuse, uncomplicated; F12.10 Cannabis abuse, uncomplicated; R45.851 Suicidal ideations; F32.9 Major depressive disorder, single episode, unspecified; M62.82 Rhabdomyolysis; Z88.0 Allergy status to penicillin; Z91.041 Radiographic dye allergy status; Z20.822 Contact with and (suspected) exposure to COVID-19
CPT/HCPCS: 36415; 36416; 70450; 76705; 80053; 80143; 80306; 80307; 81003; 82550; 84443; 84484; 85025; 87635; 90471; 90662; 93005; 94760; 96372; 96374; 96375; G0008; G0378; J1200; J1630; J1650; J2060; U0003; U0005

== ENCOUNTER 2021-02-02 13:26 | Emergency (ER) | payer SELFPAY ==
[2021-02-02 14:04] LABS: Hemoglobin 16.2 g/dL (14.0-18.0); Mean Corpuscular HGB CONC 32.4 g/dL (32.0-36.0); Mean Corpuscular Hemoglobin 32.9 pg (27.0-31.0); Mean Platelet Volume 9.1 fL (7.4-10.4); Platelet Count 159 thou/uL (130-400); Red Blood Cell (RBC) Count 4.92 mill/uL (4.70-6.10); White Blood Cell (WBC) Count 5.2 thou/uL (4.8-10.8)
[2021-02-02 14:24] LABS: Acetaminophen Less than 6.0 mcg/mL (10.0-30.0); Alcohol 14 mg/dL (Less than 10); CK (CPK) 557 U/L (30-200); Salicylate Less than 8.0 mg/dL (15.0-30.0)
[2021-02-02 14:26] LABS: Amphetamine Not Detected (NotDetected); Barbiturates Screen Not Detected (NotDetected); Benzodiazepine Screen Not Detected (NotDetected); Cocaine Metabolite Screen Not Detected (NotDetected); Medtox Control Line Valid? VALID (VALID); Medtox Reader # READER 1; Methadone Not Detected (NotDetected); Methamphetamine Not Detected (NotDetected); Opiate Screen Not Detected (NotDetected); Oxycodone Screen Not Detected (NotDetected); Phencyclidine (PCP) Not Detected (NotDetected); THC/Cannabinoid Screen Not Detected (NotDetected); Tricyclic Screen Not Detected (NotDetected)
[2021-02-02 14:26] LABS: ALT (SGPT) 149 U/L (8-55); AST (SGOT) 74 U/L (5-34); Albumin 4.1 g/dL (3.5-5.0); Alcohol 10 mg/dL (Less than 10); Alkaline Phosphatase 66 U/L (40-110); Anion Gap 14 mmol/L (10-20); BUN (Urea Nitrogen) 11 mg/dL (8.9-20.6); Bilirubin, Total 0.5 mg/dL (0.2-1.2); Calc. Creatinine Clearance 0 mL/min (70-130); Calcium 8.9 mg/dL (7.8-10.44); Carbon Dioxide 21 mmol/L (22-29); Chloride 104 mmol/L (98-107); Globulin 4.4 g/dL (2.4-3.5); Glucose 86 mg/dL (70-105); Potassium 3.8 mmol/L (3.5-5.1); Protein, Total 8.5 g/dL (6.0-8.3); Sodium 135 mmol/L (136-145)
[2021-02-02 14:36] LABS: Band 1 % (5-11); Eosinophils 1 % (0-10); Lymphocytes 32 % (21-51); MDiff Complete? YES; Macrocytosis SLIGHT = 6-15 cells (100X) (0-5/hpf); Monocytes 13 % (0-10); Neutrophil 27 % (42-75); Platelet Morphology Comment Appears Adequate; Polychromasia SLIGHT = 2-3 cells (100X) (0-2/hpf); Reactive Lymphocytes 26 % (0-10); Target Cells SLIGHT = 2-5 cells (100X) (0-1/hpf)
[2021-02-02 15:55] LABS: Bilirubin Negative (Negative); Blood, Urine 2+ (Negative); Clarity Clear (Clear); Glucose, Urine (Dipstick) Normal (Negative); Ketone, Urine Negative (Negative); Leukocyte Negative Leu/uL (Negative); Nitrite Negative (Negative); Protein, Urine (Dipstick) Negative (Neg-Trace); RBC/HPF Greater than 50 HPF (0-3); Specific Gravity, Urine 1.017 (1.002-1.036); Squamous Epithelial 0-3 HPF (0-3); Urobilinogen Normal mg/dL (Less than 2); WBC/HPF 0-3 HPF (0-3); pH, Urine 5.5 (5.0-9.0)
[2021-02-02 15:56] LABS: Bacteria/HPF 1+ HPF (None Seen)
[2021-02-02] MEDS ORDERED: levETIRAcetam 500 MG/100 ML PREMIX BAG ONE (16:19)
[2021-02-02] MEDS ORDERED: Ondansetron ODT 4 MG TAB ONE (18:04)
== END 2021-02-02 18:46 | disposition home or self-care (01) ==
LOC: ERS 13:26
DX: R45.1 Restlessness and agitation (principal); R56.9 Unspecified convulsions
CPT/HCPCS: 36415; 51701; 70450; 80053; 80306; 80307; 81003; 81015; 82550; 84146; 84484; 85025; 93005; 94760; 96365; J1953; Q0162

== ENCOUNTER 2021-12-20 20:04 | Emergency (ER) | payer SELFPAY ==
[2021-12-20] MEDS ORDERED: levETIRAcetam in NS 100 ML ONE (20:52)
[2021-12-20] MEDS ORDERED: Lorazepam 2 MG/ML VIAL ONE (20:52)
[2021-12-20 21:17] LABS: Hemoglobin 15.9 g/dL (14.0-18.0); Mean Corpuscular HGB CONC 32.7 g/dL (32.0-36.0); Mean Corpuscular Hemoglobin 33.4 pg (27.0-31.0); Mean Platelet Volume 9.2 fL (7.4-10.4); Platelet Count 156 thou/uL (130-400); Red Blood Cell (RBC) Count 4.77 mill/uL (4.70-6.10)
[2021-12-20 21:24] LABS: Band 1 % (5-11); Eosinophils 1 % (0-10); Lymphocytes 67 % (21-51); MDiff Complete? YES; Monocytes 6 % (0-10); Neutrophil 22 % (42-75); Platelet Morphology Comment Appears Adequate; Reactive Lymphocytes 3 % (0-10)
[2021-12-20 22:16] LABS: Albumin 4.1 g/dL (3.5-5.0)
[2021-12-20 22:17] LABS: Chloride 104 mmol/L (98-107); Potassium 3.5 mmol/L (3.5-5.1); Sodium 136 mmol/L (136-145)
[2021-12-20 22:18] LABS: Calcium 9.4 mg/dL (7.8-10.44)
[2021-12-20 22:19] LABS: Globulin 4.4 g/dL (2.4-3.5); Glucose 102 mg/dL (70-105); Protein, Total 8.5 g/dL (6.0-8.3)
[2021-12-20 22:20] LABS: Anion Gap 12 mmol/L (10-20); Carbon Dioxide 24 mmol/L (22-29)
[2021-12-20 22:21] LABS: Bilirubin, Total 0.5 mg/dL (0.2-1.2)
[2021-12-20 22:22] LABS: Alkaline Phosphatase 61 U/L (40-110); Calc. Creatinine Clearance 0 mL/min (70-130)
[2021-12-20 22:23] LABS: BUN (Urea Nitrogen) 9 mg/dL (8.9-20.6)
[2021-12-20 22:24] LABS: AST (SGOT) 49 U/L (5-34)
[2021-12-20 22:25] LABS: ALT (SGPT) 96 U/L (8-55); Lipase 24 U/L (8-78)
== END 2021-12-20 23:15 | disposition home or self-care (01) ==
LOC: ERS 20:04
DX: R56.9 Unspecified convulsions (principal); R10.11 Right upper quadrant pain
CPT/HCPCS: 36415; 70450; 71045; 80053; 83690; 84484; 85025; 93005; 96365; 96375; J1953; J2060

== ENCOUNTER 2022-06-26 03:12 | Emergency (ER) | payer SELFPAY ==
[2022-06-26 04:22] LABS: Amphetamine Not Detected (NotDetected); Barbiturates Screen Not Detected (NotDetected); Benzodiazepine Screen Not Detected (NotDetected); Cocaine Metabolite Screen Not Detected (NotDetected); Methadone Not Detected (NotDetected); Methamphetamine Not Detected (NotDetected); Opiate Screen Not Detected (NotDetected); Oxycodone Screen Not Detected (NotDetected); Phencyclidine (PCP) Not Detected (NotDetected); THC/Cannabinoid Screen Not Detected (NotDetected); Tricyclic Screen Not Detected (NotDetected)
[2022-06-26 04:25] LABS: #Basophils 0.1 thou/uL (0.0-0.2); #Lymphocytes 5.3 thou/uL (1.20-3.40); #Monocytes 0.8 thou/uL (0.11-0.59); #Neutrophils 5.4 thou/uL (1.40-6.50); %Basophils 0.6 % (0.0-1.0); %Eosinophils 0.2 % (0.0-10.0); %Monocytes 6.6 % (0.0-10.0); %Neutrophils 46.6 % (42.0-75.0); Hemoglobin 14.9 g/dL (14.0-18.0); Mean Corpuscular HGB CONC 33.1 g/dL (32.0-36.0); Mean Corpuscular Hemoglobin 33.3 pg (27.0-31.0); Mean Platelet Volume 9.4 fL (7.4-10.4); Platelet Count 188 thou/uL (130-400); RBC Distribution Width 12.2 % (11.5-14.5); Red Blood Cell (RBC) Count 4.47 mill/uL (4.70-6.10); White Blood Cell (WBC) Count 11.5 thou/uL (4.8-10.8)
[2022-06-26 04:42] LABS: ALT (SGPT) 76 U/L (8-55); AST (SGOT) 36 U/L (5-34); Acetaminophen Less than 10.0 mcg/mL (10.0-30.0); Albumin 4.4 g/dL (3.5-5.0); Alcohol Less than 10 mg/dL (Less than 10); Alkaline Phosphatase 73 U/L (40-110); Anion Gap 17 mmol/L (10-20); BUN (Urea Nitrogen) 14 mg/dL (8.9-20.6); Bilirubin, Total 0.6 mg/dL (0.2-1.2); Calc. Creatinine Clearance 0 mL/min (70-130); Calcium 9.6 mg/dL (7.8-10.44); Carbon Dioxide 23 mmol/L (22-29); Chloride 105 mmol/L (98-107); Estimated GFR 84; Globulin 4.1 g/dL (2.4-3.5); Glucose 102 mg/dL (70-105); Potassium 3.6 mmol/L (3.5-5.1); Protein, Total 8.5 g/dL (6.0-8.3); Salicylate Less than 8.0 mg/dL (15.0-30.0); Sodium 141 mmol/L (136-145)
[2022-06-26] MEDS ORDERED: levETIRAcetam 500 MG TAB PO SCH (06:45)
[2022-06-26] MEDS ORDERED: hydrOXYzine 25 MG TAB ONE (09:46)
== END 2022-06-26 11:46 ==
LOC: ERS 03:12
DX: T40.2X2A Poisoning by other opioids, intentional self-harm, initial encounter (principal); R45.851 Suicidal ideations
CPT/HCPCS: 36415; 80053; 80177; 80306; 80307; 84443; 85025; 93005

== ENCOUNTER 2022-08-19 10:27 | Emergency (ER) | payer SELFPAY ==
[2022-08-19 11:56] LABS: ALT (SGPT) 96 U/L (8-55); AST (SGOT) 55 U/L (5-34); Albumin 4.6 g/dL (3.5-5.0); Alcohol Less than 10 mg/dL (Less than 10); Alkaline Phosphatase 78 U/L (40-110); Anion Gap 13 mmol/L (10-20); BUN (Urea Nitrogen) 12 mg/dL (8.9-20.6); Bilirubin, Total 0.7 mg/dL (0.2-1.2); Calc. Creatinine Clearance 0 mL/min (70-130); Calcium 9.7 mg/dL (7.8-10.44); Carbon Dioxide 26 mmol/L (22-29); Chloride 105 mmol/L (98-107); Estimated GFR 77; Globulin 3.9 g/dL (2.4-3.5); Glucose 88 mg/dL (70-105); Lipase 21 U/L (8-78); Potassium 3.6 mmol/L (3.5-5.1); Protein, Total 8.5 g/dL (6.0-8.3); Sodium 140 mmol/L (136-145)
[2022-08-19 11:57] LABS: #Basophils 0.1 thou/uL (0.0-0.2); #Eosinphils 0.1 thou/uL (0.0-0.7); #Lymphocytes 5.8 thou/uL (1.20-3.40); #Monocytes 0.9 thou/uL (0.11-0.59); #Neutrophils 4.9 thou/uL (1.40-6.50); %Basophils 0.9 % (0.0-1.0); %Eosinophils 0.7 % (0.0-10.0); %Lymphocytes 49.6 % (21.0-51.0); %Monocytes 7.3 % (0.0-10.0); %Neutrophils 41.6 % (42.0-75.0); Hemoglobin 15.3 g/dL (14.0-18.0); Mean Corpuscular HGB CONC 32.3 g/dL (32.0-36.0); Mean Corpuscular Hemoglobin 32.8 pg (27.0-31.0); Mean Platelet Volume 9.7 fL (7.4-10.4); Platelet Count 166 thou/uL (130-400); RBC Distribution Width 11.9 % (11.5-14.5); Red Blood Cell (RBC) Count 4.65 mill/uL (4.70-6.10); White Blood Cell (WBC) Count 11.7 thou/uL (4.8-10.8)
[2022-08-19 13:00] LABS: Amphetamine Not Detected (NotDetected); Barbiturates Screen Not Detected (NotDetected); Benzodiazepine Screen Not Detected (NotDetected); Cocaine Metabolite Screen Not Detected (NotDetected); Methadone Not Detected (NotDetected); Methamphetamine Not Detected (NotDetected); Opiate Screen Not Detected (NotDetected); Oxycodone Screen Not Detected (NotDetected); Phencyclidine (PCP) Not Detected (NotDetected); THC/Cannabinoid Screen Not Detected (NotDetected); Tricyclic Screen Not Detected (NotDetected)
[2022-08-20] MEDS ORDERED: levETIRAcetam 500 MG TAB PO SCH (13:15)
== END 2022-08-21 12:09 | disposition home or self-care (01) ==
LOC: ERS 10:27
DX: R45.851 Suicidal ideations (principal); R07.2 Precordial pain
CPT/HCPCS: 36415; 71045; 80053; 80177; 80306; 80307; 83690; 84443; 84484; 85025; 93005

== ENCOUNTER 2023-05-17 12:51 | Emergency (ER) | payer SELFPAY ==
[2023-05-17 13:59] LABS: Hemoglobin 14.4 g/dL (14.0-18.0); Mean Corpuscular HGB CONC 32.9 g/dL (32.0-36.0); Mean Corpuscular Hemoglobin 32.1 pg (27.0-31.0); Mean Corpuscular Volume 97.8 fl (78.0-98.0); Mean Platelet Volume 11.3 fL (7.4-10.4); Platelet Count 210 10x3/uL (130-400); RBC Distribution Width 12.8 % (11.5-14.5); Red Blood Cell (RBC) Count 4.48 mill/uL (4.70-6.10); White Blood Cell (WBC) Count 6.7 10x3/uL (4.8-10.8)
[2023-05-17 14:02] LABS: Delete Auto Diff?? YES; Manual Diff?? YES
[2023-05-17] MEDS ORDERED: Nitroglycerin 2% Ointment 1 INCH/1 GM Packet ONE (14:24)
[2023-05-17 14:28] LABS: ALT (SGPT) 138 U/L (8-55); AST (SGOT) 59 U/L (5-34); Albumin 4.5 g/dL (3.5-5.0); Alkaline Phosphatase 75 U/L (40-110); Anion Gap 13 mmol/L (10-20); BUN (Urea Nitrogen) 15 mg/dL (8.9-20.6); Bilirubin, Total 0.5 mg/dL (0.2-1.2); CK (CPK) 407 U/L (30-200); Calc. Creatinine Clearance 0 mL/min (70-130); Calcium 9.6 mg/dL (7.8-10.44); Carbon Dioxide 24 mmol/L (22-29); Estimated GFR 93; Globulin 4.4 g/dL (2.4-3.5); Glucose 116 mg/dL (70-105); Lipase 22 U/L (8-78); Potassium 3.7 mmol/L (3.5-5.1); Protein, Total 8.9 g/dL (6.0-8.3)
[2023-05-17 14:30] LABS: Band 2 % (5-11); CellaVision Operator ID LAB.MJL; Eosinophils 1 % (0-10); Large Platelets 5.9 % (0-5); Lymphocytes 53 % (21-51); Monocytes 8 % (0-10); Neutrophil 36 % (42-75); Platelet Adequacy Comment Platelets Normal; RBC Morphology Within Normal Limits; Total Cell Count 101
[2023-05-17 14:53] LABS: Chloride 102 mmol/L (98-107); Sodium 135 mmol/L (136-145)
[2023-05-17 17:27] LABS: Troponin I Less than 0.010 ng/mL (< 0.028)
[2023-05-17] MEDS ORDERED: Acetaminophen 500 MG TAB ONE (17:41)
== END 2023-05-17 17:50 | disposition home or self-care (01) ==
LOC: ERS 12:51
DX: R07.9 Chest pain, unspecified (principal)
CPT/HCPCS: 36415; 71045; 80053; 82550; 83690; 84484; 85025; 93005; 94760